=== PATIENT | female | born 1970 | race Caucasian/White ===

== ENCOUNTER 2016-09-03 05:29 | Day surgery (SDC) | payer OTHER ==
[2016-08-30 10:31] VITALS: BMI 26.0
[2016-09-03] MEDS ORDERED: CEFAZOLIN 2 GM/D5W 50 ML IVPB ONE (06:01)
[2016-09-03] MEDS ORDERED: PHENAZOPYRIDINE HCL 100 MG TABLET (FP) PO STA (06:01)
--- NOTE | 2016-09-03 06:01 | HP ---
History & Physical Update - History History: No Change - Physical Physical: No Change - Assessment Assessment: No Change - Plan Plan: No Change
[2016-09-03] MEDS ORDERED: SIMETHICONE 80 MG TAB.CHEW (FP) PO PRN (06:05)
[2016-09-03] MEDS ORDERED: BISACODYL 10 MG SUPP.RECT RC PRN (06:06)
[2016-09-03] MEDS ORDERED: DEXTROSE 5%-LACTATED RINGERS 1,000 ML IV SCH ×2 (06:15→06:30)
[2016-09-03] MEDS ORDERED: ONDANSETRON 4 MG/2 ML VIAL IVPB PRN (06:22)
[2016-09-03] MEDS ORDERED: PHENAZOPYRIDINE HCL 100 MG TABLET (FP) ONE (06:26)
[2016-09-03] MEDS ORDERED: PHENAZOPYRIDINE HCL 100 MG TABLET (FP) PO ONE (06:50)
[2016-09-03] MEDS ORDERED: MIDAZOLAM HCL 2 MG/2 ML SINGLE DOSE VIAL ONE (07:32)
[2016-09-03] MEDS ORDERED: DEXAMETHASONE SOD PHOSPHATE 4 MG/1 ML VIAL ONE ×2 (07:42→09:35)
[2016-09-03] MEDS ORDERED: PROPOFOL 20 ML ONE (07:43)
[2016-09-03] MEDS ORDERED: LIDOCAINE HCL/PF 2% SDV 5ML VIAL ONE (07:43)
[2016-09-03] MEDS ORDERED: ROCURONIUM BROMIDE 50 MG/5 ML VIAL ONE (07:44)
[2016-09-03] MEDS ORDERED: ceFAZolin SODIUM 1 GM VIAL ONE (07:48)
[2016-09-03] MEDS ORDERED: ceFAZolin SODIUM 1 GM VIAL IVPB ONE (07:48)
[2016-09-03] MEDS ORDERED: HYDROmorphone HCL CARPU-JECT 1 MG/1 ML DISP.SYRIN IVPUSH PRN (09:13)
[2016-09-03] MEDS ORDERED: BUPIVACAINE HCL/PF 0.5% (5MG/ML) 10 ML VIAL ONE (09:37)
[2016-09-03] MEDS ORDERED: NEOSTIGMINE METHYLSULFATE 0.5 MG/ML - 10 ML MDV ONE (09:39)
[2016-09-03] MEDS ORDERED: GLYCOPYRROLATE 0.2 MG/1 ML VIAL ONE (09:39)
[2016-09-03] MEDS ORDERED: BUPIVACAINE HCL/PF 0.5% (5MG/ML) 10 ML VIAL IJ ONE (09:42)
[2016-09-03] MEDS ORDERED: CEFAZOLIN 2 GM/D5W 50 ML IVPB SCH (10:00)
[2016-09-03] MEDS ORDERED: HYDROmorphone HCL CARPU-JECT 2 MG/1 ML DISP.SYRIN ONE ×2 (10:06→12:08)
[2016-09-03] MEDS ORDERED: HYDROmorphone HCL CARPU-JECT 2 MG/1 ML DISP.SYRIN IVPUSH ONE ×3 (10:10→11:30)
--- NOTE | 2016-09-03 15:51 | SURG ---
Surgery Supervisor Pigment Making Note Supervisor Pigment Making: Gopal Parkinson PA-C Date of Service: 09/03/16 Diagnosis: uterine fibroids Procedure: Robotic total hysterectomy with bilateral salpingectomy I was present for the entirety of the operative procedure. For further detail, please refer to operative report. Visit type - Case Type Case Type: Scheduled Admission - New patient This patient is new to me today: Yes Date on this admission: 09/03/16
[2016-09-03] MEDS: CEFAZOLIN 2 GM/D5W 50 ML IVPB SCH (17:42)
[2016-09-03 19:49] LABS: MCH 26.4 pg (25.7-33.7); MCHC 31.8 g/dl (32.0-36.0); MEAN PLT VOLUME 10.3 fl (7.5-11.1); PLATELET COUNT 267 K/MM3 (134-434); WHITE BLOOD COUNT 18.2 K/mm3 (4.0-10.0)
[2016-09-03] MEDS: IBUPROFEN 800 MG/8 ML IJ IVPB PRN (21:22)
[2016-09-04] MEDS ORDERED: CEFAZOLIN (PRE-DOCKED) 50 ML IVPB ONE (01:26)
[2016-09-04] MEDS: CEFAZOLIN 2 GM/D5W 50 ML IVPB SCH (01:54)
[2016-09-04] MEDS: IBUPROFEN 800 MG/8 ML IJ IVPB PRN (06:33)
--- NOTE | 2016-09-04 07:09 | PN ---
Progress Note (short form) - Note Progress Note: 46 yo with Leiomyoma of the uterus, seen and evaluated, She's status post Hysterectomy. She's doing well; only mild incision pain. PE : Chest : CTA, no rales ABD : Soft, no distention, + incision pain EXT : No calf tenderness ASS / Pain : Status post Hysterectomy Stable Regular diet Continue post op care Possible D/C Home this PM
[2016-09-04 08:02] LABS: MCH 26.6 pg (25.7-33.7); MCHC 32.1 g/dl (32.0-36.0); MEAN PLT VOLUME 10.3 fl (7.5-11.1); PLATELET COUNT 220 K/MM3 (134-434); RDW 13.9 % (11.6-15.6); WHITE BLOOD COUNT 13.1 K/mm3 (4.0-10.0)
--- NOTE | 2016-09-04 08:25 | PN ---
Progress Note (short form) - Note Progress Note: POD #1 - s/p robotic assisted laparoscopic hysterectomy under general anesthesia. Pt. doing well, sitting up comfortably in bed eating breakfast. No complaints. No apparent anesthetic complications noted. Continue current care.
[2016-09-04 09:12] VITALS: BP 114/56; PULSE 65; TEMP 98.1
[2016-09-04] MEDS ORDERED: ENOXAPARIN NA (PORCINE) 40 MG/0.4 ML DISP.SYRIN SQ SCH (10:00)
--- NOTE | 2016-09-04 10:25 | DS ---
Physical Exam: SUBJECTIVE: Patient seen and examined. POD #1 s/p robotic total hysterectomy w/ bilateral salpingectomy. C/o incisional tenderness but pain managed well via PRN meds. Sitting in chair at bedside. States she has gotten out of bed and ambulated. Using her incentive spirometer as instructed. She is passing flatus. Voiding without difficulty. Tolerating PO diet. States she passed a little blood from her vagina. Denies n/v/f/c, CP, SOB or palpitations. OBJECTIVE: Last Vital Signs Temp Pulse Resp BP Pulse Ox 98.1 F 65 19 114/56 99 09/04/16 09:09 09/04/16 09:09 09/04/16 09:09 09/04/16 09:09 09/03/16 21:31 PE GENERAL: The patient is awake, alert, and fully oriented, in no acute distress. HEAD: Normal with no signs of trauma. EYES: PERRL, extraocular movements intact, sclera anicteric, conjunctiva clear. NECK: Trachea midline, full range of motion, supple. LUNGS: CTA b/l anteriorly HEART: RRR ABDOMEN: all surgical ports intact. No hematoma. EXTREMITIES: 2+ pulses, warm, well-perfused, no edema. PSYCH: Normal mood, normal affect. LABS CBC, WBC 13.1 K/mm3 (4.0-10.0) H 09/04/16 05:37 RBC 3.61 M/mm3 (3.60-5.2) 09/04/16 05:37 Hgb 9.6 GM/dL (10.7-15.3) L D 09/04/16 05:37 Hct 30.0 % (32.4-45.2) L 09/04/16 05:37 MCV 83.0 fl (80-96) 09/04/16 05:37 MCHC 32.1 g/dl (32.0-36.0) 09/04/16 05:37 RDW 13.9 % (11.6-15.6) 09/04/16 05:37 Plt Count 220 K/MM3 (134-434) 09/04/16 05:37 MPV 10.3 fl (7.5-11.1) 09/04/16 05:37 HOSPITAL COURSE: Date of Admission:09/03/16 Date of Discharge: 09/04/16 The patient was admitted to the Med-Surg Unit after an elective repair of their uterine fibroids. Now, s/p robotic total hysterectomy w/ bilateral salpingectomy The day of surgery, the patient ambulated the hallways with assistance. Narcotic and non-narcotic pain management control was achieved with an oral and IV approach. Mary-operative IV ABX were administered. DVT prophylaxis was achieved with SCDs and early ambulation. Prior to prescribing Narcotic scripts, [place] [employer] was checked. The discharge instructions and an oral pain management plan were reviewed with the patient. All questions answered. Above plan discussed with Dr. Sahu and agreed. Minutes to complete discharge: 15 Visit type - Case Type Case Type: Scheduled Admission
[2016-09-04] MEDS ORDERED: ACETAMINOPHEN 325 MG TABLET (FP) PO ONE (10:56)
--- NOTE | 2016-09-04 12:55 | PATH ---
Surgical Pathology Report Patient Name: BRYSON SAN [facility]. Rec. #: [id number] /Age/Gender: 1970 (Age: 46) / F Account: [id number] Location: AMBULATORY SURG Taken: 09/03/2016 Received: 09/03/2016 Reported: 09/04/2016 Physicians: Bharti Sahu M.D. Specimen(s) Received A: UTERUS AND CERVIX B: RIGHT FALLOPIAN TUBE C: LEFT FALLOPIAN TUBE Clinical History Leiomyoma of uterus Final Diagnosis A. UTERUS AND CERVIX, HYSTERECTOMY: UTERUS AND CERVIX, 222 GRAMS, WITH ADENOMYOSIS, PROLIFERATIVE ENDOMETRIUM, AND CERVIX WITH ACUTE AND CHRONIC INFLAMMATION. B. RIGHT FALLOPIAN TUBE, SALPINGECTOMY: BENIGN FALLOPIAN TUBE WITH ENDOMETRIOSIS. C. LEFT FALLOPIAN TUBE, SALPINGECTOMY: BENIGN FALLOPIAN TUBE. Electronically Signed Edgard Gutierrez M.D. Gross Description A. Received in formalin, labeled "uterus and cervix," is a 222 g uterus with an attached cervix and no attached adnexa. The specimen measures 11.3 cm superior to inferior, 7 cm from left to right and 5.5 cm anterior to posterior. The serosa is pink-ponce and smooth. The attached cervix measures 3.3 cm in length and averages 3 cm in diameter. The ectocervix is pink-ponce, smooth and glistening. The endocervix is unremarkable. The endometrial cavity measures 6 cm in length and 3.8 cm from cornu to cornu. The endometrium is hyperemic and averages 0.1 cm in thickness. The myometrium is ponce and firm with whorled architecture. The myometrium averages 2.6 cm in thickness. No intramural nodules are identified. Cloak Room Attendant sections are submitted in 6 cassettes as follows: 1-anterior cervix; 2-posterior cervix; 8-5-jknwitjx endomyometrium; 6-3-auqdmblsq endomyometrium. B. Received in formalin, labeled "right fallopian tube," is a 2.5 cm in length fimbriated portion of fallopian tube. The outer surface is ponce-pink and smooth. Sectioning reveals an unremarkable lumen. Cloak Room Attendant sections are submitted in 2 cassettes as follows: 1-fimbria; 2-tpwhm-moqgxjom of fallopian tube. C. Received in formalin, labeled "left fallopian tube," is a 2.5 cm in length fimbriated portion of fallopian tube. The outer surface is ponce-pink and smooth. Sectioning reveals an unremarkable lumen. Cloak Room Attendant sections are submitted in 2 cassettes as follows: 1-fimbria; 5-ehcwa-ysreyjol of fallopian tube. 09/03/2016 [facility]09/03/2016
--- NOTE | 2016-09-12 17:03 | OP ---
Operative Note - Note: Operative Date: 09/03/16 Pre-Operative Diagnosis: Leiomyomatous uterus. menorrhagia. intramural myoma Operation: Laparoscoic robotic total hysterectomy. bilateral salpingectomy Findings: leiomyomatous uterus Post-Operative Diagnosis: Same as Pre-op Surgeon: Bharti Sahu Coconut Cooker: Gopal Parkinson Anesthesia: General Estimated Blood Loss (mls): 100 Operative Report Dictated: Yes
--- NOTE | 2016-09-13 20:57 | OP ---
DATE OF OPERATION: 09/03/2016 PREOPERATIVE DIAGNOSES: Leiomyomatous uterus, menorrhagia, intramural myomas, and pelvic pain. OPERATION: Robotic total laparoscopic hysterectomy and bilateral salpingectomy. POSTOPERATIVE DIAGNOSES: Leiomyomatous uterus, menorrhagia, intramural myomas, and pelvic pain. SURGEON: Bharti Sahu MD AMMONIA DISTILLER: GALI Bermudez ANESTHESIA: General. ANESTHESIOLOGIST: Bernabe Winchester MD PROCEDURE: The patient was taken to the operating room, placed in dorsal lithotomy position, prepped and draped in the usual sterile fashion. Time-out was performed according to the hospital regulation. Speculum was placed in the vagina, anterior lip of the cervix grasped with single-tooth tenaculum. Cervix was then dilated to accommodate the uterine manipulator, which was placed around the cervix and in the endometrial cavity. The balloon was placed in the endometrial cavity. Attention was then drawn to the umbilicus, where an 8-mm umbilical incision was made. Veress needle was inserted into the cavity. Approximately 3 to 4 L of CO2 was insufflated. Veress needle was then removed. An 8-mm trocar was then inserted with laparoscope and camera. Two trocars were placed on the left, 1 slightly within the umbilicus on the lower left and upper abdomen incision with a 5 mm incision for the AirSeal trocar was inserted. Attention was then drawn to the right side, where 2 trocars parallel to each other, about 8 mm apart from the umbilical incision were made and trocars were inserted under direct visualization. Uterus was noted to be leiomyomatous uterus. The da Rina robot was then side-docked to the patient's bedside and trocars were then inserted onto the robot. Instruments were then inserted under direct visualization, vessel sealer on the left, and tenaculum and Endo Mireille on the right. Attention was then drawn to the console, where control of the console was done and tenaculum was then used to grasp the uterus to the right side where the left uteroovarian ligament was identified and clamped and cut. Uterine arteries were identified and clamped and cut. Vesicouterine reflection was then entered and bladder was bluntly dissected out of the operative field. Cardinal ligament was identified and clamped and cut to the level of the vagina. Endo Mireille were then used to make an incision on the vagina. The tenaculum was then used to move the uterus to the left side, where the same procedure was repeated on the right side. Vessel sealer was then used to clamp and cut uteroovarian ligament. Uterine arteries were identified and clamped and cut. Vesicouterine reflection was then cut on the right and bladder again was bluntly dissected out of the operative field. The cardinal ligament was then identified and clamped and cut down to the level of the vagina. The Endo Mireille were then used to cut the vagina away from the cervix. Uterus was then exteriorized out of the vagina. The V-Loc suture was passed into the abdominal cavity and instruments were changed to needle holders on the da Rina robot. The V-Loc suture was grasped and continuous stitch using V-Loc suture was then done on the vagina. Cuff was noted to have a tight seal. Needle was then cut and removed from the abdomen. Hemostasis was achieved. Ureters identified and found to have peristalsis. Estimated blood loss was 100 mL. All instruments were then removed. CO2 was removed from the abdomen. Incisions were then closed using 4-0 Biosyn suture in a subcuticular fashion. The wound was washed and dressed. The patient tolerated procedure well. Estimated blood loss 100 mL. Renee [id number]
== END 2016-09-04 12:01 | disposition home or self-care (01) ==
LOC: JASUSAT 05:29 → J3W 13:00 → JASUSAT 09-04 12:01
PROVIDERS: ATTEND Obstetrics & Gynecology
PROC: 0UT74ZZ Resection of Bilateral Fallopian Tubes, Percutaneous Endoscopic Approach (ICD-10-PCS; 2016-09-03)
PROC: 8E0W4CZ Robotic Assisted Procedure of Trunk Region, Percutaneous Endoscopic Approach (ICD-10-PCS; 2016-09-03)
PROC: 0UT94ZZ Resection of Uterus, Percutaneous Endoscopic Approach (ICD-10-PCS; principal; 2016-09-03 07:30)
PROC: 0UTC4ZZ Resection of Cervix, Percutaneous Endoscopic Approach (ICD-10-PCS; 2016-09-03 07:30)
DX: D25.9 Leiomyoma of uterus, unspecified (principal); D25.1 Intramural leiomyoma of uterus; N92.0 Excessive and frequent menstruation with regular cycle; R10.2 Pelvic and perineal pain
CPT/HCPCS: 58571; S2900; 36415; 84703; 85027; 88305-TC; 88307-TC; 94010; 94760

== ENCOUNTER 2018-06-03 12:13 | Emergency (ER) | payer OTHER ==
[2018-06-03 12:25] VITALS: BP 126/81; PULSE 81; TEMP 98.4; BMI 28.3
--- NOTE | 2018-06-03 14:18 | PDOC ---
History of Present Illness <Ender Ericksonel Yulissa - Last Filed: 06/03/18 14:28> - General History Source: Patient Exam Limitations: No Limitations - History of Present Illness Initial Comments: 06/03/18 14:32 Patient came with complaints of worsening wrist pain. Started on the right wrist and now has spread to the left wrist. 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 Denies any recent trauma, has had no accidents or falls. Has had no fevers, swelling or any other pathology to hands. Was concerned about developing arthritis. Timing/Duration: 24 hours, 1 week, getting worse Severity: mild, moderate <Deja Duenas - Last Filed: 06/03/18 14:54> - General Chief Complaint: Pain Stated Complaint: PAIN, RT ARM Time Seen by Provider: 06/03/18 13:32 Past History - Past Medical History Anemia: Yes COPD: No - Immunization History Immunization Up to Date: Yes - Suicide/Smoking/Psychosocial Hx Smoking History: Never smoked Have you smoked in the past 12 months: No Information on smoking cessation initiated: No Hx Alcohol Use: No Drug/Substance Use Hx: No Substance Use Type: Alcohol <Ender Ericksonel Yulissa - Last Filed: 06/03/18 14:28> - Travel Traveled outside of the country in the last 30 days: No Close contact w/someone who was outside of country & ill: No <Deja Duenas - Last Filed: 06/03/18 14:54> - Past Medical History Allergies/Adverse Reactions: Allergies Allergy/AdvReac Type Severity Reaction Status Date / Time No Known Drug Allergies Allergy Verified 08/30/16 10:31 Home Medications: Ambulatory Orders Naproxen [Naprosyn -] 500 mg PO BID #30 tablet 06/03/18 Review of Systems - Review of Systems Able to Perform ROS?: Yes Is the patient limited Frisian proficient: Yes Constitutional: Yes: See HPI. No: Symptoms Reported, Fever, Malaise HEENTM: No: Symptoms Reported Respiratory: No: Symptoms reported Musculoskeletal: Yes: Symptoms Reported, See HPI, Joint Pain, Joint Swelling, Joint Stiffness Integumentary: No: Symptoms Reported All Other Systems: Reviewed and Negative <Deja Duenas - Last Filed: 06/03/18 14:54> *Physical Exam - Vital Signs Last Vital Signs Temp Pulse Resp BP Pulse Ox 98.4 F 81 16 126/81 100 06/03/18 12:22 06/03/18 12:22 06/03/18 12:22 06/03/18 12:22 06/03/18 12:22 <Jose Martin Erickson - Last Filed: 06/03/18 14:28> - Vital Signs Last Vital Signs Temp Pulse Resp BP Pulse Ox 98.4 F 81 16 126/81 100 06/03/18 12:22 06/03/18 12:22 06/03/18 12:22 06/03/18 12:22 06/03/18 12:22 - Physical Exam General Appearance: Yes: Nourished, Appropriately Dressed, Apparent Distress HEENT: positive: KEITH, Normal ENT Inspection, TMs Normal, Pharynx Normal Neck: positive: Tender, Supple Respiratory/Chest: positive: Chest Tender, Lungs Clear Gastrointestinal/Abdominal: positive: Soft Musculoskeletal: positive: Normal Inspection Extremity: positive: Normal Capillary Refill, Normal Inspection, Other (positive : Normal Capillary Refill, Normal Inspection. negative: Normal Range of Motion (somewhat limited range of motion with flexion and extension however no crepitus , step-offs, erythema or swelling noted to joint. Able to reproduce pain with flexion and extension of right fourth and fifth digits that extends up ulnar aspect of arm consistent with a tendinopathy. Neurovascular intact distal and strong pulses)) Integumentary: positive: Normal Color, Dry, Warm Neurologic: positive: food manager II-XII NML intact, Fully Oriented, Alert, Normal Mood/ Affect <Deja Duenas - Last Filed: 06/03/18 14:54> Moderate Sedation - Procedure Monitoring Vital Signs: Procedure Monitoring Vital Signs Temperature 98.4 F 06/03/18 12:22 Pulse Rate 81 06/03/18 12:22 Respiratory Rate 16 06/03/18 12:22 Blood Pressure 126/81 06/03/18 12:22 O2 Sat by Pulse Oximetry (%) 100 06/03/18 12:22 <Jose Martin Erickson - Last Filed: 06/03/18 14:28> - Procedure Monitoring Vital Signs: Procedure Monitoring Vital Signs Temperature 98.4 F 06/03/18 12:22 Pulse Rate 81 06/03/18 12:22 Respiratory Rate 16 06/03/18 12:22 Blood Pressure 126/81 06/03/18 12:22 O2 Sat by Pulse Oximetry (%) 100 06/03/18 12:22 <Deja Duenas - Last Filed: 06/03/18 14:54> Medical Decision Making - Medical Decision Making 06/03/18 14:54 No bony injury therefore will hold x-rays and explained to patient why lack of need. Wrist splint applied, we'll treat with NSAIDs, rest and have follow-up with orthopedist <Deja Duenas - Last Filed: 06/03/18 14:54> *DC/Admit/Observation/Transfer <Jose Martin Erickson - Last Filed: 06/03/18 14:28> - Discharge Dispostion Decision to Admit order: No <Deja Duenas - Last Filed: 06/03/18 14:54> Diagnosis at time of Disposition: Tendinitis - Discharge Dispostion Disposition: HOME Condition at time of disposition: Stable - Prescriptions Prescriptions: Naproxen [Naprosyn -] 500 mg PO BID #30 tablet - Referrals Referrals: Gurwinder Hill MD [Primary Care Provider] - Etienne Evans MD [Staff Physician] - - Patient Instructions Printed Discharge Instructions: DI for Tendinitis Additional Instructions: Rest, ice to area on and off for 15 minutes 4-6 times a day Avoid heavy lifting or exercise until pain and swelling is resolved or until further directed Keep area highly elevated to reduce swelling Use splints/Ronak wrap as directed Followup with orthopedist in one to 2 days if not improving, if significantly improved may wait one week for followup with orthopedist May use ibuprofen 2-200 mg tablets every 6 hours as needed for pain - Post Discharge Activity Forms/Work/School Notes: Back to Work
== END 2018-06-03 14:52 | disposition home or self-care (01) ==
LOC: JERFT 12:13
DX: M77.8 Other enthesopathies, not elsewhere classified (principal)
CPT/HCPCS: 99281-25

== ENCOUNTER 2023-11-20 13:35 | Emergency (ER) | payer OTHER ==
[2023-11-20 13:49] VITALS: BP 138/63; PULSE 69; RESP 17; TEMP 97.8; BMI 27.6
== END 2023-11-20 15:28 | disposition home or self-care (01) ==
LOC: JERFT 13:35
DX: S00.03XA Contusion of scalp, initial encounter (principal); W22.8XXA Striking against or struck by other objects, initial encounter; Y93.01 Activity, walking, marching and hiking
CPT/HCPCS: 99283-25